=== PATIENT | female | born 1970 | race Caucasian/White ===

== ENCOUNTER → 2024-05-28 | Outpatient (REF) | LOC: M PLAIMG 10:24 | PROVIDERS: ATTEND Internal Medicine | DX: M54.50 Low back pain, unspecified (principal) ==

== ENCOUNTER → 2025-07-15 | Outpatient (REF) | LOC: M PLAIMG 12:02 | PROVIDERS: ATTEND Internal Medicine | DX: R52 Pain, unspecified (principal) ==